=== PATIENT | female | born 1945 | race Caucasian/White ===

== ENCOUNTER 2017-03-25 08:46 | Emergency (ER) | payer MEDICARE ==
[~2017-03-25] VITALS: Ht 162.6 cm; Wt 60.0 kg
[~2017-03-25 08:46] MED LIST: ALBU8I INH; PRED20 PO; [UNRECOGNIZED DRUG - REMARK]
[2017-03-25 08:50] VITALS: BP 111/55; PULSE 126; RESP 40; TEMP 98.6; O2SAT 58
[2017-03-25 08:54] VITALS: BP 113/57; PULSE 126; RESP 25; TEMP 98.1; O2SAT 56
[2017-03-25] MEDS ORDERED: SODIUM CHLORIDE 0.9% FLUSH 10 ML FLUSH IVF PRN (09:00)
[2017-03-25] MEDS ORDERED: RESP: ALBUTEROL 2.5 MG/IPRATROPIUM 0.5 MG NEB (SCH) INH ONE (09:00)
[2017-03-25] MEDS ORDERED: OMEP20TA PO (09:04)
[2017-03-25] MEDS ORDERED: AMOX875T2 PO (09:04)
[2017-03-25] MEDS ORDERED: VENTAER INH (09:04)
[2017-03-25] MEDS ORDERED: SERO100T PO (09:04)
[2017-03-25] MEDS ORDERED: PRED20 PO (09:04)
[2017-03-25] MEDS ORDERED: cefTRIAXone INJ 1,000 MG in SODIUM CHLORIDE 0.9% INJ 100 ML IV ONE (09:15)
[2017-03-25] MEDS ORDERED: AZITHROMYCIN INJ 500 MG in SODIUM CHLOR 0.9% 250 ML INJ 250 ML IV ONE (09:15)
[2017-03-25 09:25] VITALS: O2SAT 90
--- NOTE | 2017-03-25 09:27 | PD ---
HPI Chief Complaint: Respiratory Distress Time Seen by Provider: 09:00 Travel History International Travel<30 days: No Contact w/Intl Traveler<30days: No Traveled to known affect area: No History of Present Illness HPI This 71-year-old with a history dementia and a known lung mass in the right upper lung for 5 years, presents to the emergency department with respiratory distress, shaky feeling, change in behavior. She reportedly has been having some trouble breathing and with rattling audible in her chest for the past several days. She went to an urgent care couple days ago with a gave her bronchodilators, antibiotics, and steroids. She hasn't really improved. Daughter bought an oxygen meter last night she was measuring about 60% or so. She had worsening symptoms this morning and so they brought her to the emergency department. History Past Medical History Narrative Medical Lung mass Dementia Tetanus Vaccination: Unknown Social History Alcohol Use: No Tobacco Use: Yes (5 CIG PER DAY) Allergies-Medications (Allergen,Severity, Reaction): Coded Allergies: Iodine (Verified Allergy, Unknown, 03/25/17) Reported Meds & Prescriptions Reported Meds & Active Scripts Active Reported Seroquel (Quetiapine Fumarate) 25 Mg Tab 25 Mg PO DAILY Ventolin Hfa 18 GM Inh (Albuterol Sulfate) 90 Mcg/Act Aer 1 Puff INH Q4H PRN Prednisone 20 Mg Tab 20 Mg PO BID Seroquel (Quetiapine Fumarate) 100 Mg Tab 75 Mg PO HS Omeprazole 20 Mg Tab 20 Mg PO DAILY Amoxicillin-Clavulanate 875-125 mg Tab 875 Mg PO BID not for use in CrCl <30 mL/minute Review of Systems Except as stated in HPI: all other systems reviewed are Neg Physical Exam Narrative GENERAL: 71-year-old woman, mild respiratory distress. Some confusion. SKIN: Focused skin assessment warm/dry. HEAD: Atraumatic. Normocephalic. CARDIOVASCULAR: Heart rate rapid but regular. No appreciable murmurs. RESPIRATORY: Moderate tachypnea. Coarse rattling breath sounds at the posterior lung [place]. Not obviously diminished in the bases. GASTROINTESTINAL: Abdomen soft, non-tender, nondistended. Hepatic and splenic margins not palpable. MUSCULOSKELETAL: No obvious deformities. No significant edema. NEUROLOGICAL: Awake and alert. No obvious cranial nerve deficits. Motor grossly within normal limits. Normal speech. PSYCHIATRIC: Appropriate mood and affect; insight and judgment normal. Data Data Last Documented VS Vital Signs Date Time Temp Pulse Resp B/P Pulse Ox O2 Delivery O2 Flow Rate FiO2 03/25/17 13:18 89 22 120/74 96 Nasal Cannula 4 03/25/17 08:54 98.1 Orders Complete Blood Count With Diff (03/25/17 09:00) Comprehensive Metabolic Panel (03/25/17 09:00) B-Type Natriuretic Peptide (03/25/17 09:00) Act Partial Throm Time (Ptt) (03/25/17 09:00) Prothrombin Time / Inr (Pt) (03/25/17 09:00) Troponin I (03/25/17 09:00) Arterial Blood Gas (Abg) (03/25/17 09:00) Urinalysis - C+S If Indicated (03/25/17 09:00) Influenzae A/B Antigen (03/25/17 09:00) Blood Culture (03/25/17 09:00) Iv Access Insert/Monitor (03/25/17 09:00) Ecg Monitoring (03/25/17 09:00) Oximetry (03/25/17 09:00) Oxygen Administration (03/25/17 09:00) Chest, Single Ap (03/25/17 09:00) Sodium Chloride 0.9% Flush (Ns Flush) (03/25/17 09:00) Albuterol-Ipratropium Neb (Duoneb Neb) (03/25/17 09:00) Lactic Acid Sepsis Protocol (03/25/17 09:00) Ct Thorax/ Chest Wo Iv Contras (03/25/17 ) Ceftriaxone Inj (Rocephin Inj) (03/25/17 09:15) Azithromycin Inj (Zithromax Inj) (03/25/17 09:15) Us Leg Venous Doppler Bilat (03/25/17 ) Hospice Consult (03/25/17 12:04) Resp Home Oxygen Walk Test (03/25/17 ) Labs Laboratory Tests Test 03/25/17 03/25/17 09:20 09:31 White Blood Count 20.7 TH/MM3 Red Blood Count 4.59 MIL/MM3 Hemoglobin 13.9 GM/DL Hematocrit 41.8 % Mean Corpuscular Volume 91.0 FL Mean Corpuscular Hemoglobin 30.3 PG Mean Corpuscular Hemoglobin 33.3 % Concent Red Cell Distribution Width 14.4 % Platelet Count 299 TH/MM3 Mean Platelet Volume 8.5 FL Neutrophils (%) (Auto) 92.5 % Lymphocytes (%) (Auto) 1.9 % Monocytes (%) (Auto) 5.3 % Eosinophils (%) (Auto) 0.1 % Basophils (%) (Auto) 0.2 % Neutrophils # (Auto) 19.2 TH/MM3 Lymphocytes # (Auto) 0.4 TH/MM3 Monocytes # (Auto) 1.1 TH/MM3 Eosinophils # (Auto) 0.0 TH/MM3 Basophils # (Auto) 0.0 TH/MM3 CBC Comment DIFF FINAL Differential Comment Prothrombin Time 10.7 SEC Prothromb Time International 1.0 RATIO Ratio Activated Partial 24.7 SEC Thromboplast Time Sodium Level 142 MEQ/L Potassium Level 3.8 MEQ/L Chloride Level 103 MEQ/L Carbon Dioxide Level 27.5 MEQ/L Anion Gap 12 MEQ/L Blood Urea Nitrogen 20 MG/DL Creatinine 1.26 MG/DL Estimat Glomerular Filtration 42 ML/MIN Rate Random Glucose 160 MG/DL Lactic Acid Level 2.0 mmol/L Calcium Level 8.8 MG/DL Total Bilirubin 0.7 MG/DL Aspartate Amino Transf 30 U/L (AST/SGOT) Alanine Aminotransferase 26 U/L (ALT/SGPT) Alkaline Phosphatase 117 U/L Troponin I 0.03 NG/ML B-Type Natriuretic Peptide 71 PG/ML Total Protein 7.6 GM/DL Albumin 3.3 GM/DL Blood Gas Puncture Site LT RADIAL Blood Gas Patient Temperature 98.6 Blood Gas HCO3 28 mmol/L Blood Gas Base Excess 2.8 mmol/L Blood Gas Oxygen Saturation 89 % Arterial Blood pH 7.34 Arterial Blood Partial 54 mmHg Pressure CO2 Arterial Blood Partial 61 mmHG Pressure O2 Arterial Blood Oxygen Content 17.0 Vol % Arterial Blood 1.3 % Carboxyhemoglobin Arterial Blood Methemoglobin 0.5 % Blood Gas Hemoglobin 13.6 G/DL Oxygen Delivery Device NONREBREATHER Blood Gas Liter Flow 15 L/M [facility] Medical Decision Making Medical Screen Exam Complete: Yes Emergency Medical Condition: Yes Interpretation(s) LABS: CBC remarkable for leukocytosis. CMP remarkable for mild elevation in creatinine Lactate 2.0 Troponin negative BNP 71 Chest x-ray: Consolidation right lung, most likely neoplastic. Chest CT: Mass in the right upper lobe most likely neoplastic with endobronchial obstruction. Differential Diagnosis Mass, pleural effusion, pneumonia, PE, other Narrative Course Medical decision-making new 71-year-old woman with known untreated lung mass, presents with respiratory difficulties and hypoxemia. She is also little tachycardic. Likely pneumonia versus pleural effusion versus PE. We'll check x-rays. Patient has an IVP dye allergy. We'll check Doppler ultrasounds, consider empiric treatment, reassess. FINAL: This is a 71-year-old woman presents to the emergency department with a history dementia and known right lung mass 5 years. The mass appears to have grown margin of his nonobstructing the bronchitis. She has post bronchial obstruction atelectasis with probable pneumonia. Sats are in the 50s to 60s on room air. Discussed multiple options with the family including admission for treatment, admission for further diagnostic studies including biopsy, or palliative care consultation with hospice. They discussed it, and they would like to proceed with hospice consult in the emergency department which I think is reasonable. Hospice will come see the patient and family here, and disposition will be with them likely home or to a care center. 1:45 PM: After further discussion, the would like to take her home and once a couple days of think things over. He just wants home oxygen but does not hospice. The daughter would really prefer to have hospice with the is adamant. We discussed this in detail. I told him we can arrange for home oxygen. I strongly recommended hospice ovular responder emergencies in the middle the night, and an provide more support, but certainly respect his decision. Patient will be discharged with antibiotics, home oxygen, for palliative care, and they understand they can return at any point to change her mind, and they're given information for hospice with the expectation that they will arrange for hospice next couple days. Diagnosis Primary Impression: Lung mass Additional Impression: Pneumonia Additional Instructions: Follow-up with hospice in the next several days. Follow-up with her primary physician at the first available appointment. Return to the emergency department at any time for any worsening or uncontrolled symptoms. Med/Other Pt SpecificInfo: Prescription(s) given Scripts Levofloxacin (Levaquin)750 Mg [id number] Mg PO DAILY 7 Days Ref 0 Prov:Ben Cruz MD 03/25/17 Oxygen tank 1 Ea Tank #5 Liter Face.mask Continuous Oxygen Concentrator Portable Gaseous 2-5 L/min via Face Mask Continuous For 99 months Prov:Ben Cruz MD 03/25/17 Disposition: 01 DISCHARGE HOME Condition: Stable Ben Cruz MD March 25, 2017 09:27
[2017-03-25 09:41] LABS: BLOOD GAS BASE EXCESS 2.8 mmol/L (-2-2); BLOOD GAS CARBOXYHEMOGLOBIN 1.3 % (0-4); BLOOD GAS HCO3 28 mmol/L (22-26); BLOOD GAS METHEMOGLOBIN 0.5 % (0-2); BLOOD GAS O2 HGB SATURATION 89 % (90-100); BLOOD GAS PCO2 54 mmHg (38-42); BLOOD GAS PO2 61 mmHG (61-120); BLOOD GAS TOTAL HGB 13.6 G/DL (12.0-16.0); CRITICAL VALUE YES; TEMP CORR TO 98.6
[2017-03-25 09:41] LABS: AUTOMATED NEUTROPHIL # 19.2 TH/MM3 (1.8-7.7); BASOPHIL % 0.2 % (0.0-2.0); EOSINOPHIL % 0.1 % (0.0-4.0); HEMATOCRIT 41.8 % (35.0-46.0); HEMO FLAGS DIFF FINAL; LYMPH % 1.9 % (9.0-44.0); LYMPHOCYTE # 0.4 TH/MM3 (1.0-4.8); MEAN CORPUSCULAR HEMOGLOBIN 30.3 PG (27.0-34.0); MEAN CORPUSCULAR HGB CONC 33.3 % (32.0-36.0); MONO % 5.3 % (0.0-8.0); NEUT % 92.5 % (16.0-70.0); PLATELET COUNT 299 TH/MM3 (150-450); RED BLOOD COUNT 4.59 MIL/MM3 (4.00-5.30); RED CELL DISTRIBUTION WIDTH 14.4 % (11.6-17.2); WHITE BLOOD COUNT 20.7 TH/MM3 (4.0-11.0)
[2017-03-25 09:42] LABS: DRAW SITE LT RADIAL; LITER FLOW 15 L/M; NUMBER OF ARTERIAL PUNCTURES 1; OXYGEN DEVICE NONREBREATHER; STAT YES
[2017-03-25 09:54] LABS: APTT (PATIENT) 24.7 SEC (24.3-30.1); PROTHROMBIN TIME - PATIENT 10.7 SEC (9.8-11.6)
[2017-03-25 10:03] LABS: ANION GAP 12 MEQ/L (5-15); AST (GOT) 30 U/L (15-37); BICARBONATE 27.5 MEQ/L (21.0-32.0); BLOOD UREA NITROGEN 20 MG/DL (7-18); CHLORIDE 103 MEQ/L (98-107); GLOMERULAR FILTRATION RATE 42 ML/MIN (>89); POTASSIUM 3.8 MEQ/L (3.5-5.1); SODIUM (NA) 142 MEQ/L (136-145)
[2017-03-25 10:08] LABS: ALKALINE PHOSPHATASE 117 U/L (45-117); ALT (GPT) 26 U/L (10-53); TOTAL BILIRUBIN ADULT 0.7 MG/DL (0.2-1.0)
--- NOTE | 2017-03-25 10:44 | RADRPT ---
EXAM DATE/TIME: 03/25/2017 09:43 [facility] COMPARISON: CHEST PA & LAT, March 05, 2015, 16:43. INDICATIONS : Short of breath, right lung mass. MEDICAL HISTORY : Carcinoma, lung. SURGICAL HISTORY : None. ENCOUNTER: Initial ACUITY: 2 days PAIN SCORE: 0/10 LOCATION: Right chest FINDINGS: There are consolidative changes in the right lung. The left lung is clear. The heart and pulmonary v ascularity are normal. The portion of the bony skeleton visualized is unremarkable. CONCLUSION: Consolidation right lung, most likely neoplastic. Dong Coelho MD FACR on March 25, 2017 at 10:41 Board Certified Radiologist. This report was verified electronically.
[2017-03-25] MEDS ORDERED: SERO25TA PO (10:53)
--- NOTE | 2017-03-25 11:28 | RADRPT ---
EXAM DATE/TIME: 03/25/2017 11:08 [facility] COMPARISON: No previous studies available for comparison. INDICATIONS : Patient has SOB with history of right lung cancer. RADIATION DOSE: 4.03 CTDIvol (mGy) MEDICAL HISTORY : Carcinoma, lung. SURGICAL HISTORY : Appendectomy. Cholecystectomy. ENCOUNTER: Initial ACUITY: 1 day PAIN SCALE: 0/10 LOCATION: Bilateral chest TECHNIQUE: Volumetric scanning of the chest was performed. Using automated exposure control and adjustment of the mA and/or kV according to patient size, radiation dose was kept as low as reasonab ly achievable to obtain optimal diagnostic quality images. FINDINGS: LUNGS: Consolidative mass is present in the right lung and endobronchial obstruction right upper lobe. Satellite nodules are seen in the right lower lobe. The left lung is clear. PLEURAE: There is no significant pleural effusion. MEDIASTINUM: The heart and great vessels demonstrate no acute abnormality. There is no mediastin al or hilar lymphadenopathy. AXILLAE: Within normal limits. No lymphadenopathy. MUSCULOSKELETAL: Within normal limits for patient age. MISCELLANEOUS: The visualized upper abdominal organs demonstrate no acute abnormality. CONCLUSION: Mass probably right upper lobe most likely neoplastic with endobronchial obstruction. Easiest path to diagnosis would be bronchoscopy. Dong Coelho MD FACR on March 25, 2017 at 11:24 Board Certified Radiologist. This report was verified electronically.
--- NOTE | 2017-03-25 12:36 | RADRPT ---
EXAM DATE/TIME: 03/25/2017 10:01 [facility] COMPARISON: No previous studies available for comparison. INDICATIONS : Bilateral leg swelling. MEDICAL HISTORY : Dementia. SURGICAL HISTORY : Tonsillectomy.Appendectomy. Cholecystectomy. ENCOUNTER: Initial ACUITY: 1 day PAIN SCORE: 1/10 LOCATION: Bilateral legs. TECHNIQUE: Venous ultrasound of the left and right leg was performed from the inguinal ligament to the proximal calf. Real-time, color Doppler and spectral tracing, compression and augmentation techniques were us ed. FINDINGS: RIGHT LEG: There is normal compressibility of the deep venous system from the inguinal region to the proximal ca lf. No echogenic clot is seen in the lumen of the common femoral, femoral, popliteal, and posterior tibial veins. There is a normal response of the venous system to proximal and distal augmentation an d respiration. LEFT LEG: There is normal compressibility of the deep venous system from the inguinal region to the proximal ca lf. No echogenic clot is seen in the lumen of the common femoral, femoral, popliteal, and posterior tibial veins. There is a normal response of the venous system to proximal and distal augmentation an d respiration. CONCLUSION: 1. No evidence of deep venous thrombosis. Sebastian Beatty MD on March 25, 2017 at 12:35 Board Certified Radiologist. This report was verified electronically.
[2017-03-25 13:18] VITALS: BP 120/74; PULSE 89; RESP 22; O2SAT 96
[2017-03-25] MEDS ORDERED: OXYGENTANK FACE.MASK (13:44)
[2017-03-25] MEDS ORDERED: LEVA750T PO (13:44)
== END 2017-03-25 18:45 | disposition home or self-care (01) ==
LOC: NEPC 08:46
DX: R91.8 Other nonspecific abnormal finding of lung field (principal); J18.9 Pneumonia, unspecified organism; F17.210 Nicotine dependence, cigarettes, uncomplicated; F03.90 Unspecified dementia, unspecified severity, without behavioral disturbance, psychotic disturbance, mood disturbance, and anxiety; R06.02 Shortness of breath
CPT/HCPCS: 36600; 71010; 71250; 80053; 82805; 83605; 83880; 84484; 85025; 85610; 85730; 87040; 87804; 93970; 94620; 94664; 96365; 96366; 96367; 99284; J0456; J0696; J7050